=== PATIENT | female | born 1990 | race American Indian/Alaskan Native ===

== ENCOUNTER 2017-09-09 06:13 | Emergency (ER) | payer OTHER ==
[2017-09-09 06:13] VITALS: BMI 29.4
[2017-09-09 06:28] VITALS: BP 120/78; PULSE 77; RESP 18; TEMP 97.9; O2SAT 100
--- NOTE | 2017-09-09 07:31 | ED PDOC ---
Arrival/HPI - General Historian: Patient - History of Present Illness Time/Duration: 4-6 hours Symptom Onset: Sudden Symptom Course: Improving <Diaz Pavon - Last Filed: 09/09/17 08:58> <Jignesh Zaragoza - Last Filed: 09/09/17 09:54> - General Chief Complaint: Trauma Time Seen by Provider: 09/09/17 07:12 - History of Present Illness Narrative History of Present Illness (Text): Patient is a 27 year old female presenting to the Emergency Room after injuring her right hand while drinking the night before. She does not know how she injured herself, "I was moving some stuff and then my hand was bleeding." She denies falling or punching anything with her hand. There is mild pain at rest but she is able to move her hand without limitations. She came to the emergency room due to the blood not the pain, "I don't have much pain." Denies fevers, chills, nausea, vomiting, diarrhea, constipation, chest pain, sob, abdominal pain, numbness or tingling. (Diaz Pavon) Past Medical History - Provider Review Nursing Documentation Reviewed: Yes - Infectious Disease Hx of Infectious Diseases: None - Tetanus Immunization Tetanus Immunization: Unknown - Cardiac Hx Cardiac Disorders: No Hx Hypertension: No - Pulmonary Hx Tuberculosis: No - Neurological HX Cerebrovascular Accident: No Hx Seizures: No - Hematological/Oncological Hx Cancer: No - Musculoskeletal/Rheumatological Other/Comment: CARPAL TUNNEL - Gastrointestinal Hx Gastroesophageal Reflux: Yes - Genitourinary/Gynecological Hx Sexually Transmitted Diseases: No - Psychiatric Hx Psychophysiologic Disorder: No Hx Substance Use: Yes (cannabis oil) - Anesthesia Hx Anesthesia: No <Diaz Pavon - Last Filed: 09/09/17 08:58> Family/Social History - Physician Review Nursing Documentation Reviewed: Yes Family/Social History: Unknown Family HX Smoking Status: Light Smoker < 10 Cigarettes Daily Hx Alcohol Use: Yes Hx Substance Use: Yes (cannabis oil) <Diaz Pavon - Last Filed: 09/09/17 08:58> Allergies/Home Meds <Diaz Pavon - Last Filed: 09/09/17 08:58> <Jignesh Zaragoza - Last Filed: 09/09/17 09:54> Allergies/Adverse Reactions: Allergies shrimp Allergy (Verified 04/28/18 06:25) RASH SCALLOP Allergy (Uncoded 09/09/17 06:25) RASH Home Medications: Home Meds Medication Instructions Recorded Confirmed No Known Home Med 09/09/17 09/09/17 Review of Systems - Physician Review All systems were reviewed & negative as marked: Yes - Review of Systems Constitutional: Normal. absent: Fatigue Eyes: Normal ENT: Normal Respiratory: Normal. absent: SOB Cardiovascular: Normal. absent: Chest Pain, Palpitations Gastrointestinal: Normal Musculoskeletal: Other (right hand laceration) Skin: Normal Neurological: Normal Endocrine: Normal Hemo/Lymphatic: Normal Psychiatric: Normal <Diaz Pavon - Last Filed: 09/09/17 08:58> - Physician Review All systems were reviewed & negative as marked: Yes <Jignesh Zaragoza - Last Filed: 09/09/17 09:54> Physical Exam Vital Signs Reviewed: Yes Temperature: Afebrile Blood Pressure: Normal Pulse: Regular Respiratory Rate: Normal Appearance: Positive for: Well-Appearing, Non-Toxic, Comfortable Pain Distress: None Mental Status: Positive for: Alert and Oriented X 3 - Systems Exam Head: Present: Atraumatic, Normocephalic Conjunctiva: Present: Normal Mouth: Present: Moist Mucous Membranes Nose (Internal): Present: No Active Bleeding Neck: Present: Normal Range of Motion Respiratory/Chest: No: Respiratory Distress, Accessory Muscle Use Upper Extremity: Present: Normal ROM, NORMAL PULSES, Tenderness (TTP at bases of 3rd and 4th digit), Neurovascularly Intact, Capillary Refill < 2s, Other (1 cm laceration over MCP joint of 4th digit on right hand). No: Cyanosis, Edema, Swelling, Erythema Lower Extremity: Present: Normal Inspection. No: Edema Neurological: Present: GCS=15, CN II-XII Intact, Speech Normal Skin: Present: Warm, Dry, Normal Color, Laceration (1 cm lac over MCP joint of 4th digit on right hand). No: Rashes Psychiatric: Present: Alert, Oriented x 3, Normal Insight, Normal Concentration <Diaz Pavon - Last Filed: 09/09/17 08:58> Vital Signs Temp Pulse Resp BP Pulse Ox 09/09/17 06:27 97.9 F 77 18 120/78 100 Medical Decision Making - RAD Interpretation Ob Nurse: Radiologist <Diaz aPvon - Last Filed: 09/09/17 08:58> <Jignesh Zaragoza - Last Filed: 09/09/17 09:54> ED Course and Treatment: Patient was offered pain medicine but declined. Right hand x-ray - Normal right hand radiographs 1 cm laceration over MCP of 4th digit on right hand repaired with 5-0 prolene, 2 sutures in total. 1 mL of lidocaine 1% used for local anesthesia. (Diaz Pavon) 09/09/17 07:54 Halle Castillo is a 27 year old female who presents to the emergency room with a complaint of bleeding from her right hand s/p trauma last night while drinking. The patient states that she is unaware of how she obtained the injury and notes that she came into the emergency room because it began to bleed. In agreement with resident note, which includes further HPI details. Patient was seen and evaluated with resident, came up with plan and treatment together. Laceration repaired by resident with my supervision. Great approximation. No complications. Patient was given Tetanus because her status was greater than 10 years. The wound does not appear to be infection. No antibiotics indicated. Patient was given instructions on wound care. She was advised to return to the ED for suture removal in 7 days. She was advised to return to the ED if redness , pus, swelling, fever or any other concern develops. (Jignesh Zaragoza) - RAD Interpretation Narrative RAD Interpretations (Text): Right hand x-ray - Normal right hand radiographs (Diaz Pavon) Radiology Orders: 09/09/17 07:21 HAND RIGHT 3 VIEWS [RAD] Stat - Medication Orders Current Medication Orders: Discontinued Medications Tetanus/Reduced Diphtheria/Acell Pertussis (Boostrix Vaccine Inj) 0.5 ml IM .ONCE ONE Stop: 09/09/17 08:50 Last Admin: 09/09/17 09:07 Dose: 0.5 ml MAR Immunization Data Document 09/09/17 09:07 SRE (Rec: 09/09/17 09:07 SRE [id number]) Immunization Data Vaccine Information Sheet Given Yes Immunization Registry Document 09/09/17 09:07 SRE (Rec: 09/09/17 09:07 SRE [id number]) Immunization Registry Consent Date 05/09/17 <Diaz Pavon - Last Filed: 09/09/17 08:58> - Scribe Statement The provider has reviewed the documentation as recorded by the Scribe <Jignesh Zaragoza - Last Filed: 09/09/17 09:54> - Scribe Statement Emiliana Mai Provider Scribe Attestation: All medical record entries made by the Scribe were at my direction and personally dictated by me. I have reviewed the chart and agree that the record accurately reflects my personal performance of the history, physical exam, medical decision making, and the department course for this patient. I have also personally directed, reviewed, and agree with the discharge instructions and disposition. (Jignesh Zaragoza) Disposition/Present on Arrival - Present on Arrival Any Indicators Present on Arrival: No History of DVT/PE: No History of Uncontrolled Diabetes: No Urinary Catheter: No History of Decub. Ulcer: No History Surgical Site Infection Following: None - Disposition Have Diagnosis and Disposition been Completed?: Yes Disposition Time: 08:45 <Diaz Pavon - Last Filed: 09/09/17 08:58> - Disposition Patient Plan: Discharge <Jignesh Zaragoza - Last Filed: 09/09/17 09:54> - Disposition Diagnosis: Hand laceration Disposition: HOME/ ROUTINE Condition: IMPROVED Discharge Instructions (ExitCare): Laceration Repair Additional Instructions: Jonathan, thank you for letting us take care of you today. Your provider was Dr. Zaragoza. You were treated for Laceration Repair. The emergency medical care you received today was directed at your acute symptoms. If you were prescribed any medication, please fill it and take as directed. It may take several days for your symptoms to resolve. Return to the Emergency Department if your symptoms worsen, do not improve, or if you have any other problems. Make sure to return to the Emergency Department in 7 days for suture removal. Please contact your doctor or call one of the physicians/clinics you have been referred to that are listed on the Patient Visit Information form that is included in your discharge packet. Bring any paperwork you were given at discharge with you along with any medications you are taking to your follow up visit. Our treatment cannot replace ongoing medical care by a primary care provider (PCP) outside of the emergency department. Thank you for allowing the [facility] team to be part of your care today. If you had an X-Ray or CT scan: A Radiologist will review the ED reading if any change in treatment is needed we will contact you. If you had a blood, urine, or wound culture: It will take several days for the results, if any change in treatment is needed we will contact you. If you had an STI test: It will take 48 hours for the results. Please call after 1 week if you have not heard back. Referrals: [facility] at [facility] [place] [Outside] - Follow up with primary Forms: [employer] ([place]an), WORK NOTE
--- NOTE | 2017-09-09 08:29 | RAD ---
PROCEDURE: Right Hand Radiographs. HISTORY: injury to hand COMPARISON: None. FINDINGS: BONES: Normal. No fracture. JOINTS: Normal. No osteoarthritic changes. SOFT TISSUES: Normal. OTHER FINDINGS: None. IMPRESSION: Normal right hand radiographs.
[2017-09-09] MEDS ORDERED: TDAP Vaccine 0.5 mL Syr IM ONE (08:49)
--- NOTE | 2017-09-09 18:44 | PCM.PROC ---
Procedures Attestation:: I certify that I have explained the specified Operation(s) or Procedure(s), risks, benefits and reasonable alternatives to the Patient and/or other person responsible. The opportunity was given to ask questions and all questions answered - Laceration lidocaine 1% simple, single layer wound explored right hand 5-0 other local infiltration simple, interrupted Site: hand Side (if applicable): right Size (cm): 1 Description: linear Depth: simple, single layer Anesthesia used: lidocaine 1% Anesthesia technique: local infiltration Amount (mLs): 1 Pre-repair: wound explored, irrigated extensively Skin layer closed with: other (prolene) Size: 5-0 Number of sutures: 2 Technique: simple, interrupted
== END 2017-09-09 09:08 | disposition home or self-care (01) ==
LOC: ED 06:13
DX: S61.411A Laceration without foreign body of right hand, initial encounter (principal); X58.XXXA Exposure to other specified factors, initial encounter; Z23 Encounter for immunization; F17.210 Nicotine dependence, cigarettes, uncomplicated